=== PATIENT | female | born 1960 | race Caucasian/White ===

== ENCOUNTER 2020-03-11 09:47 | Emergency (ER) | payer OTHER ==
[~2020-03-11] VITALS: Ht 167.6 cm; Wt 71.7 kg
[~2020-03-11 09:47] MED LIST: AZITHROMYCIN250 MG ORAL; NKM
[2020-03-11 09:59] VITALS: BP 150/89
--- NOTE | 2020-03-11 10:00 | NUR ---
ED Nurse Note:pt. came with right arm pain after mechanical fall yesterday, pt. can move her arm skin is intact, pain med was given
--- NOTE | 2020-03-11 10:03 | Emergency Room Report ---
History of Present Illness General Chief Complaint: Upper Extremity Injury Source: Patient Present Illness HPI Disclaimer: Please note that this report is being documented using [employer] technology. This can lead to erroneous entry secondary to incorrect interpretation by the dictating instrument. HPI: 59-year-old [id number] female presents for evaluation of right elbow pain after a fall. The patient was walking up stairs yesterday missed a step falling forward outstretched right hand hitting the right elbow. Reported pain but no swelling. Able to flex and extend the elbow as well as pronate and supinate but has difficulty with pronation and supination secondary to pain. The pain is mostly located in the medial aspect of the right elbow and over the proximal forearm. No tenderness in the wrist or hand. Able to flex and extend all digits. No tenderness in the shoulder. There was no head injury. No other complaints. PMH: Hypercholesterolemia PSH: Reviewed Allergies: Reviewed Social Hx: Reviewed Allergies: Coded Allergies: No Known Allergies (Unverified , 10/10/15) COVID-19 Screening Contact w/high risk pt: No Experienced COVID-19 symptoms?: No COVID-19 Testing performed CAP COVERER: No Patient History Now: No Nursing Documentation-PMH Past Medical History: No Stated History Review of Systems All Other Systems: negative except mentioned in HPI Physical Exam Vital Signs Date Time Temp Pulse Resp B/P (MAP) Pulse Ox O2 Delivery O2 Flow Rate FiO2 03/11/20 09:54 98.1 84 20 150/89 (109) 98 Room Air General: Awake and alert, no acute distress HEENT: NC/AT. EOMI. Resp: Normal work of breathing Skin: Intact. No abrasions, laceration or rash over the exposed skin MSK: Normal tone and bulk. Moving all extremities. No obvious deformity. Tenderness palpation over the medial and lateral aspects of the right elbow. Full flexion extension. Able to pronate and supinate. Tenderness over the proximal radius without obvious deformity or swelling. No tenderness in the wrist. Able to flex and extend the wrist without difficulty. Able to flex and extend all digits of the right hand. Brisk capillary refill. No deformity. Neuro: Awake and alert. Mentating appropriately Procedures Splinting Splinting : Consent: Verbal Hand-Made Type: plaster Splint: posterior long Pre-Proc Neuro Vasc Exam: normal Post-Proc Neuro Vasc Exam: normal Patient Tolerated: Well Complications: None Medical Decision Making Diagnostic Impression: Primary Impression: Radial head fracture, closed ER Course 59-year-old [id number] female presents for evaluation of elbow pain after a fall. Concern for fracture dislocation x-ray was obtained. X-rays show a radial head fracture. Patient was placed in a posterior slab splint for immobilization at 90 degrees and given a sling. Splinting was performed by me. Patient tolerated the procedure well. Brisk capillary refill in all digits. No discomfort noted by patient. She will follow-up with orthopedic surgery within 1 week. Refer to orthopedic clinic and her PMD for referral to orthopedic surgeon if within her network. Copies of her x-rays were provided. Prescribed pain medication and instructed her on proper splint care and reasons to return to the ED. She understands and agrees with treatment plan was discharged home. Other X-Ray Diagnostic Results Other X-Ray Diagnostic Results #1: X-Ray ordered: Right elbow # of Views/Limited Vs Complete: Complete Indication: Pain EP Interpretation: Yes Interpretation: other - Radial head fracture Impression: Other - Radial head fracture Electronically Signed by: Electronically signed by Dr. Jas Palmer Other X-Ray Diagnostic Results #2: X-Ray ordered: Right forearm # of Views/Limited Vs Complete: Complete Indication: Pain Interpretation: other - Radial head fracture Impression: Other - Radial head fracture Electronically Signed by: Electronically signed by Dr. Jas Palmer Last Vital Signs Date Time Temp Pulse Resp B/P (MAP) Pulse Ox O2 Delivery O2 Flow Rate FiO2 03/11/20 09:59 98.1 72 20 150/89 98 Room Air Disposition: HOME, SELF-CARE Condition: Stable Scripts Hydrocodone Bit/Acetaminophen 5-325* (NORCO 5-325 TABLET*) 1 Each Tablet 1 TAB ORAL Q6H PRN for FOR PAIN, #12 TAB 0 Refills Prov: Jas Palmer MD 03/11/20 Ibuprofen* (MOTRIN*) 600 Mg Tablet 600 MG ORAL Q6H PRN for For Pain, #30 TAB 0 Refills Prov: Jas Palmer MD 03/11/20 Jas Palmer MD Mar 11, 2020 10:02
[2020-03-11] MEDS ORDERED: NORCO 5-325 TA1 EAC1 ORAL (10:39)
[2020-03-11] MEDS ORDERED: IBUPROFEN600 M1 ORAL (10:39)
[2020-03-11 11:32] VITALS: BP 135/77
--- NOTE | 2020-03-11 11:32 | NUR ---
ED Nurse Note: Pt cleared by ERMD for discharge. DC instructions was given and explained to pt and verbalized understanding of teachings. prescription sent electronically to the pharmacy of choice. All medical deviecs such as ID band removed. Pt is AAO x4, ambulatory and left with all personal belongings.
--- NOTE | 2020-03-11 13:12 | Diagnostic Imaging Report ---
Indications:Pain, trauma Technique: Three or 4 views of the ] elbow Comparison: None Findings: There is an intra-articular fracture of the lateral aspect of the radial head. This is depressed no ulnar or humeral fracture demonstrated. There is a joint effusion Impression: Positive for radial head fracture Findings discussed by phone with Dr. Palmer in the emergency room at the time of interpretation
--- NOTE | 2020-03-11 13:15 | Diagnostic Imaging Report ---
Indications: Pain, trauma Technique: Two views of the right forearm Comparison: None Findings: There is an intra-articular fracture of the radial head. No shaft fracture demonstrated Impression: Positive for radial head fracture, also described on separate elbow radiograph report
== END 2020-03-11 11:15 | disposition home or self-care (01) ==
LOC: EMR 10:25
DX: S52.121A Displaced fracture of head of right radius, initial encounter for closed fracture (principal); E78.00 Pure hypercholesterolemia, unspecified; W19.XXXA Unspecified fall, initial encounter; Y92.9 Unspecified place or not applicable
CPT/HCPCS: 29105; 99284